=== PATIENT | male | born 1995 | race Caucasian/White ===

== ENCOUNTER 2019-02-28 23:17 | Inpatient (IN) | payer OTHER ==
[2019-03-01 00:01] LABS: ADD MAN DIFF? NO
[2019-03-01] MEDS: morphine 4 MG/ML VIAL IV ×4 (00:01→10:05)
[2019-03-01] MEDS: ONDANSETRON 4 MG INJ IV ×3 (00:01→17:33)
[2019-03-01] MEDS: SOD CHLORIDE 0.9% 1,000 ML IV ×2 (00:01→07:00)
[2019-03-01 00:02] LABS: BASOPHIL # 0.1 10^3/ul (0.0-0.1); BASOPHILS % 0.5 % (0.0-2.0); EOSINOPHILS # 0.1 10^3/ul (0.0-0.5); EOSINOPHILS % 0.8 % (0.0-7.0); HEMATOCRIT 44.2 % (42.0-52.0); HEMOGLOBIN 15.3 g/dl (14.0-18.0); LYMPHOCYTES # 4.3 10^3/ul (0.8-2.9); LYMPHOCYTES % 29.2 % (15.0-51.0); MEAN CORPUSCULAR HEMOGLOBIN 30.2 pg (29.0-33.0); MEAN CORPUSCULAR HGB CONC 34.6 g/dl (32.0-37.0); MEAN CORPUSCULAR VOLUME 87.4 fl (82.0-101.0); MEAN PLATELET VOLUME 8.8 fl (7.4-10.4); MONOCYTES % 6.9 % (0.0-11.0); NEUTROPHIL # 9.2 10^3/ul (1.6-7.5); NEUTROPHILS % 62.1 % (39.0-77.0); PLATELET COUNT 478 10^3/UL (140-415); RED BLOOD COUNT 5.06 10^6/ul (4.70-6.10); RED CELL DISTRIBUTION WIDTH 11.4 % (11.5-14.5)
[2019-03-01 00:02] LABS: WHITE BLOOD COUNT 14.8 10^3/ul (4.8-10.8)
[2019-03-01 00:05] LABS: ADD UMIC YES; UR ASCORBIC ACID NEGATIVE (NEGATIVE); UR BILIRUBIN (Dip) NEGATIVE (NEGATIVE); UR BLOOD (Dip) 1+ mg/dL (NEGATIVE); UR CLARITY CLEAR (CLEAR); UR COLOR YELLOW (YELLOW); UR GLUCOSE (Dip) NEGATIVE (NEGATIVE); UR KETONES (Dip) NEGATIVE (NEGATIVE); UR LEUKOCYTE ESTERASE (Dip) NEGATIVE Leu/ul (NEGATIVE); UR MUCUS FEW /HPF (NONE SEEN); UR NITRITE (Dip) NEGATIVE (NEGATIVE); UR RBC 2 /HPF (0-5); UR SPECIFIC GRAVITY (Dip) 1.025 (1.003-1.030); UR TOTAL PROTEIN (Dip) NEGATIVE (NEGATIVE); UR UROBILINOGEN (Dip) NEGATIVE (NEGATIVE); UR WBC 0 /HPF (0-5)
[2019-03-01 00:25] LABS: ALANINE AMINOTRANSFERASE 117 IU/L (13-69); ALBUMIN 4.6 g/dl (3.3-4.9); ALBUMIN/GLOBULIN RATIO 1.24; ALKALINE PHOSPHATASE 83 IU/L (42-121); ANION GAP 13 (5-13); ASPARTATE AMINO TRANSFERASE 57 IU/L (15-46); BILIRUBIN,INDIRECT 0.9 mg/dl (0-1.1); BILIRUBIN,TOTAL 0.9 mg/dl (0.2-1.3); BLOOD UREA NITROGEN 11 mg/dl (7-20); CALCIUM 9.9 mg/dl (8.4-10.2); CARBON DIOXIDE 27 mmol/L (21-31); CHLORIDE 104 mmol/L (97-110); CREATININE 0.96 mg/dl (0.61-1.24); Estimated GFR > 60 mL/min (>60); GLUCOSE 102 mg/dl (70-220); LIPASE 53 U/L (23-300); POTASSIUM 3.9 mmol/L (3.5-5.1); SODIUM 144 mmol/L (135-144); TOTAL PROTEIN 8.3 g/dl (6.1-8.1)
[2019-03-01] MEDS: LACTATED RINGER'S 1,000 ML IV ×2 (02:17→16:25)
[2019-03-01] MEDS: PIPER-TAZO 3.375 GM IV (PMX) 100 ML IVPB ×3 (02:17→12:05)
[2019-03-01] MEDS ORDERED: ACETAMINOPHEN 325 MG TAB PO (03:30)
[2019-03-01] MEDS ORDERED: ONDANSETRON 4 MG INJ IV (03:30)
[2019-03-01] MEDS ORDERED: morphine 2 MG INJ IV (05:30)
[2019-03-01] MEDS ORDERED: NACL 0.9% 3 ML SYG IV (05:30)
[2019-03-01] MEDS: D5W-0.45 NACL + KCL 20 MEQ 1,000 ML IV (05:44)
[2019-03-01] MEDS ORDERED: SEVOFLURANE 15 MIN (13:40)
[2019-03-01] MEDS ORDERED: PHENYLephrine (100 MCG/ML) 5ML SYG (13:40)
[2019-03-01] MEDS ORDERED: FENTAnyl 50 MCG/ML VIAL ×2 (13:40→16:14)
[2019-03-01] MEDS ORDERED: MIDAZOLAM 1 MG/ML 2 ML INJ (13:41)
[2019-03-01] MEDS ORDERED: LIDOCAINE 2% (SDV) 5 ML INJ (13:48)
[2019-03-01] MEDS ORDERED: ROCURONIUM 50 MG INJ ×4 (13:48→15:33)
[2019-03-01] MEDS ORDERED: ROPIVACAINE 0.5 % 30 ML VIAL (13:48)
[2019-03-01] MEDS ORDERED: SUCCINYLCHOLINE CHLORIDE 100 MG/5 ML SYG IV (13:48)
[2019-03-01] MEDS ORDERED: PROPOFOL 40 ML (13:48)
[2019-03-01] MEDS ORDERED: MEPERIDINE 25 MG INJ IV (14:00)
[2019-03-01] MEDS ORDERED: ONDANSETRON 4 MG INJ (14:00)
[2019-03-01] MEDS ORDERED: DIPHENHYDRAMINE 50 MG INJ IV (14:00)
[2019-03-01] MEDS ORDERED: DEXAMETHASONE 4 MG/ML 5 ML INJ (14:00)
[2019-03-01] MEDS ORDERED: PROCHLORPERAZINE 10 MG INJ IV (14:00)
[2019-03-01] MEDS ORDERED: HYDROmorphONE 1 MG/5 ML IV SYRINGE IV ×2 (14:00)
[2019-03-01] MEDS ORDERED: FAMOTIDINE 20 MG INJ (14:01)
[2019-03-01] MEDS ORDERED: HYDROmorphONE 2 MG/ML SYG (14:41)
[2019-03-01] MEDS: BUPIVACAINE 0.25%/EPI (SDV) 30 ML INJ (15:28)
[2019-03-01] MEDS ORDERED: SUGAMMADEX SODIUM 200 MG/2 ML VIAL IV (16:04)
[2019-03-01] MEDS: HYDROmorphONE 1 MG/5 ML IV SYRINGE IV (17:32)
[2019-03-01] MEDS: FENTAnyl 50 MCG/ML VIAL IV (17:32)
[2019-03-01] MEDS: KETOROLAC 30 MG INJ IV (17:33)
[2019-03-01] MEDS: AMPICILLIN/SULB 3 GM/NS (PMX) 100 ML IVPB ×2 (18:28→23:43)
[2019-03-01] MEDS: HYDROmorphONE 0.5 MG/0.5 ML SYG IV (20:47)
[2019-03-01] MEDS: HEPARIN 5,000 UNIT/1 ML VIAL SC (20:50)
[2019-03-02] MEDS: morphine 4 MG/ML VIAL IV ×4 (01:34→19:36)
[2019-03-02] MEDS: LACTATED RINGER'S 1,000 ML IV ×4 (02:31→23:02)
[2019-03-02 05:17] LABS: ADD MAN DIFF? NO
[2019-03-02 05:18] LABS: BASOPHILS % 0.1 % (0.0-2.0); HEMATOCRIT 43.2 % (42.0-52.0); HEMOGLOBIN 14.6 g/dl (14.0-18.0); LYMPHOCYTES # 2.1 10^3/ul (0.8-2.9); MEAN CORPUSCULAR HEMOGLOBIN 30.6 pg (29.0-33.0); MEAN CORPUSCULAR HGB CONC 33.8 g/dl (32.0-37.0); MEAN CORPUSCULAR VOLUME 90.6 fl (82.0-101.0); MEAN PLATELET VOLUME 8.8 fl (7.4-10.4); MONOCYTE # 1.1 10^3/ul (0.3-0.9); MONOCYTES % 7.5 % (0.0-11.0); NEUTROPHIL # 10.7 10^3/ul (1.6-7.5); NEUTROPHILS % 76.9 % (39.0-77.0); PLATELET COUNT 476 10^3/UL (140-415); RED BLOOD COUNT 4.77 10^6/ul (4.70-6.10); RED CELL DISTRIBUTION WIDTH 11.4 % (11.5-14.5)
[2019-03-02 05:18] LABS: WHITE BLOOD COUNT 13.9 10^3/ul (4.8-10.8)
[2019-03-02] MEDS: AMPICILLIN/SULB 3 GM/NS (PMX) 100 ML IVPB ×2 (05:42→13:56)
[2019-03-02 06:03] LABS: ALANINE AMINOTRANSFERASE 88 IU/L (13-69); ALBUMIN 4.1 g/dl (3.3-4.9); ALKALINE PHOSPHATASE 72 IU/L (42-121); ANION GAP 12 (5-13); ASPARTATE AMINO TRANSFERASE 56 IU/L (15-46); BILIRUBIN,INDIRECT 0.9 mg/dl (0-1.1); BILIRUBIN,TOTAL 0.9 mg/dl (0.2-1.3); BLOOD UREA NITROGEN 11 mg/dl (7-20); CALCIUM 9.3 mg/dl (8.4-10.2); CARBON DIOXIDE 28 mmol/L (21-31); CHLORIDE 104 mmol/L (97-110); CREATININE 0.82 mg/dl (0.61-1.24); Estimated GFR > 60 mL/min (>60); GLUCOSE 123 mg/dl (70-220); MAGNESIUM 2.2 mg/dl (1.7-2.5); PHOSPHORUS 4.9 mg/dl (2.5-4.9); POTASSIUM 4.4 mmol/L (3.5-5.1); SODIUM 144 mmol/L (135-144); TOTAL PROTEIN 7.5 g/dl (6.1-8.1)
[2019-03-02] MEDS: HEPARIN 5,000 UNIT/1 ML VIAL SC ×2 (08:29→21:08)
[2019-03-02] MEDS: HYDROmorphONE 0.5 MG/0.5 ML SYG IV (09:55)
[2019-03-02] MEDS: ONDANSETRON 4 MG INJ IV (13:19)
[2019-03-02] MEDS: HYDROmorphONE 1 MG/ML SYG IV ×2 (16:00→23:09)
[2019-03-02] MEDS: PIPER-TAZO 3.375 GM IV (PMX) 100 ML IVPB (19:00)
[2019-03-02] MEDS: KETOROLAC 30 MG INJ IV (21:02)
[2019-03-03] MEDS: PIPER-TAZO 3.375 GM IV (PMX) 100 ML IVPB ×5 (00:38→23:47)
[2019-03-03] MEDS: morphine 4 MG/ML VIAL IV ×5 (01:37→21:33)
[2019-03-03] MEDS: KETOROLAC 30 MG INJ IV (03:16)
[2019-03-03] MEDS: HYDROmorphONE 1 MG/ML SYG IV ×5 (05:14→23:47)
[2019-03-03 05:44] LABS: ADD MAN DIFF? NO
[2019-03-03 05:53] LABS: BASOPHIL # 0.1 10^3/ul (0.0-0.1); BASOPHILS % 0.4 % (0.0-2.0); EOSINOPHILS # 0.1 10^3/ul (0.0-0.5); EOSINOPHILS % 0.7 % (0.0-7.0); HEMATOCRIT 41.4 % (42.0-52.0); HEMOGLOBIN 13.7 g/dl (14.0-18.0); LYMPHOCYTES # 2.3 10^3/ul (0.8-2.9); LYMPHOCYTES % 16.5 % (15.0-51.0); MEAN CORPUSCULAR HEMOGLOBIN 30.3 pg (29.0-33.0); MEAN CORPUSCULAR HGB CONC 33.1 g/dl (32.0-37.0); MEAN CORPUSCULAR VOLUME 91.6 fl (82.0-101.0); MEAN PLATELET VOLUME 8.9 fl (7.4-10.4); MONOCYTE # 1.2 10^3/ul (0.3-0.9); MONOCYTES % 8.4 % (0.0-11.0); NEUTROPHIL # 10.3 10^3/ul (1.6-7.5); NEUTROPHILS % 73.4 % (39.0-77.0); PLATELET COUNT 475 10^3/UL (140-415); RED BLOOD COUNT 4.52 10^6/ul (4.70-6.10); RED CELL DISTRIBUTION WIDTH 11.5 % (11.5-14.5)
[2019-03-03 05:53] LABS: WHITE BLOOD COUNT 14.1 10^3/ul (4.8-10.8)
[2019-03-03 06:21] LABS: ALANINE AMINOTRANSFERASE 71 IU/L (13-69); ALBUMIN 3.7 g/dl (3.3-4.9); ALBUMIN/GLOBULIN RATIO 1.15; ALKALINE PHOSPHATASE 64 IU/L (42-121); ANION GAP 7 (5-13); ASPARTATE AMINO TRANSFERASE 58 IU/L (15-46); BILIRUBIN,INDIRECT 0.6 mg/dl (0-1.1); BILIRUBIN,TOTAL 0.6 mg/dl (0.2-1.3); BLOOD UREA NITROGEN 15 mg/dl (7-20); CALCIUM 9.2 mg/dl (8.4-10.2); CARBON DIOXIDE 32 mmol/L (21-31); CHLORIDE 104 mmol/L (97-110); Estimated GFR > 60 mL/min (>60); GLUCOSE 119 mg/dl (70-220); POTASSIUM 4.3 mmol/L (3.5-5.1); SODIUM 143 mmol/L (135-144); TOTAL PROTEIN 6.9 g/dl (6.1-8.1)
[2019-03-03] MEDS: HEPARIN 5,000 UNIT/1 ML VIAL SC ×2 (08:17→21:25)
[2019-03-03] MEDS: LACTATED RINGER'S 1,000 ML IV ×4 (08:25→22:47)
[2019-03-03] MEDS: LIDOCAINE 1% (MPF) 5 ML VIAL SC (11:30)
[2019-03-04] MEDS: morphine 4 MG/ML VIAL IV ×4 (02:04→20:51)
[2019-03-04] MEDS: HYDROmorphONE 1 MG/ML SYG IV ×5 (04:38→22:51)
[2019-03-04] MEDS: PIPER-TAZO 3.375 GM IV (PMX) 100 ML IVPB ×4 (05:54→23:00)
[2019-03-04] MEDS: HEPARIN 5,000 UNIT/1 ML VIAL SC ×2 (08:24→20:50)
[2019-03-04] MEDS: LACTATED RINGER'S 1,000 ML IV ×2 (11:00→22:52)
[2019-03-05] MEDS: LACTATED RINGER'S 1,000 ML IV ×3 (00:25→21:08)
[2019-03-05] MEDS: morphine 4 MG/ML VIAL IV ×2 (01:31→05:33)
[2019-03-05] MEDS: HYDROmorphONE 1 MG/ML SYG IV ×5 (02:51→22:19)
[2019-03-05] MEDS: PIPER-TAZO 3.375 GM IV (PMX) 100 ML IVPB ×4 (05:33→23:52)
[2019-03-05 05:53] LABS: ADD MAN DIFF? NO
[2019-03-05 05:59] LABS: WHITE BLOOD COUNT 11.7 10^3/ul (4.8-10.8)
[2019-03-05 05:59] LABS: BASOPHIL # 0.1 10^3/ul (0.0-0.1); BASOPHILS % 0.6 % (0.0-2.0); EOSINOPHILS # 0.3 10^3/ul (0.0-0.5); EOSINOPHILS % 2.8 % (0.0-7.0); HEMATOCRIT 41.3 % (42.0-52.0); HEMOGLOBIN 13.7 g/dl (14.0-18.0); LYMPHOCYTES # 2.9 10^3/ul (0.8-2.9); MEAN CORPUSCULAR HEMOGLOBIN 29.9 pg (29.0-33.0); MEAN CORPUSCULAR HGB CONC 33.2 g/dl (32.0-37.0); MEAN CORPUSCULAR VOLUME 90.2 fl (82.0-101.0); MEAN PLATELET VOLUME 8.9 fl (7.4-10.4); MONOCYTES % 8.4 % (0.0-11.0); NEUTROPHIL # 7.3 10^3/ul (1.6-7.5); NEUTROPHILS % 62.6 % (39.0-77.0); PLATELET COUNT 468 10^3/UL (140-415); RED BLOOD COUNT 4.58 10^6/ul (4.70-6.10); RED CELL DISTRIBUTION WIDTH 11.5 % (11.5-14.5)
[2019-03-05 06:19] LABS: ANION GAP 10 (5-13); BLOOD UREA NITROGEN 14 mg/dl (7-20); CALCIUM 8.7 mg/dl (8.4-10.2); CARBON DIOXIDE 25 mmol/L (21-31); CHLORIDE 107 mmol/L (97-110); CREATININE 0.74 mg/dl (0.61-1.24); Estimated GFR > 60 mL/min (>60); GLUCOSE 85 mg/dl (70-220); MAGNESIUM 2.1 mg/dl (1.7-2.5); POTASSIUM 3.9 mmol/L (3.5-5.1); SODIUM 142 mmol/L (135-144)
[2019-03-05] MEDS: HEPARIN 5,000 UNIT/1 ML VIAL SC ×2 (08:16→20:06)
[2019-03-05] MEDS: morphine 2 MG INJ IV (23:55)
[2019-03-06] MEDS: DIPHENHYDRAMINE 50 MG INJ IV (01:41)
[2019-03-06] MEDS: HYDROmorphONE 1 MG/ML SYG IV (03:18)
[2019-03-06] MEDS: PIPER-TAZO 3.375 GM IV (PMX) 100 ML IVPB ×4 (05:28→23:10)
[2019-03-06 05:44] LABS: ADD MAN DIFF? NO
[2019-03-06 05:49] LABS: BASOPHIL # 0.1 10^3/ul (0.0-0.1); BASOPHILS % 0.9 % (0.0-2.0); EOSINOPHILS # 0.4 10^3/ul (0.0-0.5); EOSINOPHILS % 4.4 % (0.0-7.0); HEMATOCRIT 41.1 % (42.0-52.0); HEMOGLOBIN 13.8 g/dl (14.0-18.0); LYMPHOCYTES # 2.3 10^3/ul (0.8-2.9); LYMPHOCYTES % 23.8 % (15.0-51.0); MEAN CORPUSCULAR HEMOGLOBIN 29.6 pg (29.0-33.0); MEAN CORPUSCULAR HGB CONC 33.6 g/dl (32.0-37.0); MEAN CORPUSCULAR VOLUME 88.2 fl (82.0-101.0); MEAN PLATELET VOLUME 8.8 fl (7.4-10.4); MONOCYTE # 0.9 10^3/ul (0.3-0.9); MONOCYTES % 9.4 % (0.0-11.0); NEUTROPHIL # 5.9 10^3/ul (1.6-7.5); NEUTROPHILS % 60.5 % (39.0-77.0); PLATELET COUNT 469 10^3/UL (140-415); RED BLOOD COUNT 4.66 10^6/ul (4.70-6.10); RED CELL DISTRIBUTION WIDTH 11.2 % (11.5-14.5)
[2019-03-06 05:49] LABS: WHITE BLOOD COUNT 9.8 10^3/ul (4.8-10.8)
[2019-03-06 06:10] LABS: ANION GAP 9 (5-13); BLOOD UREA NITROGEN 12 mg/dl (7-20); CALCIUM 8.7 mg/dl (8.4-10.2); CARBON DIOXIDE 26 mmol/L (21-31); CHLORIDE 105 mmol/L (97-110); CREATININE 0.82 mg/dl (0.61-1.24); Estimated GFR > 60 mL/min (>60); GLUCOSE 89 mg/dl (70-220); SODIUM 140 mmol/L (135-144)
[2019-03-06] MEDS: HEPARIN 5,000 UNIT/1 ML VIAL SC ×2 (08:05→20:20)
[2019-03-06] MEDS: LACTATED RINGER'S 1,000 ML IV ×3 (08:07→20:20)
[2019-03-06] MEDS: SOD CHLORIDE 0.9% 100 ML (09:30)
[2019-03-06] MEDS: IOHEXOL 300MG/ML 150 ML BTL (09:37)
[2019-03-06] MEDS: morphine 2 MG INJ IV (11:52)
[2019-03-07] MEDS: morphine 2 MG INJ IV (02:33)
[2019-03-07 04:56] LABS: ADD MAN DIFF? NO
[2019-03-07 05:08] LABS: WHITE BLOOD COUNT 10.1 10^3/ul (4.8-10.8)
[2019-03-07 05:08] LABS: BASOPHIL # 0.1 10^3/ul (0.0-0.1); BASOPHILS % 1.1 % (0.0-2.0); EOSINOPHILS # 0.4 10^3/ul (0.0-0.5); EOSINOPHILS % 3.6 % (0.0-7.0); HEMATOCRIT 39.6 % (42.0-52.0); HEMOGLOBIN 13.9 g/dl (14.0-18.0); LYMPHOCYTES # 2.2 10^3/ul (0.8-2.9); LYMPHOCYTES % 21.6 % (15.0-51.0); MEAN CORPUSCULAR HEMOGLOBIN 30.2 pg (29.0-33.0); MEAN CORPUSCULAR HGB CONC 35.1 g/dl (32.0-37.0); MEAN CORPUSCULAR VOLUME 86.1 fl (82.0-101.0); MEAN PLATELET VOLUME 8.8 fl (7.4-10.4); MONOCYTE # 0.9 10^3/ul (0.3-0.9); MONOCYTES % 8.8 % (0.0-11.0); NEUTROPHIL # 6.5 10^3/ul (1.6-7.5); NEUTROPHILS % 63.8 % (39.0-77.0); PLATELET COUNT 443 10^3/UL (140-415); RED CELL DISTRIBUTION WIDTH 11.2 % (11.5-14.5)
[2019-03-07 05:20] LABS: ANION GAP 10 (5-13); BLOOD UREA NITROGEN 10 mg/dl (7-20); CALCIUM 8.9 mg/dl (8.4-10.2); CARBON DIOXIDE 24 mmol/L (21-31); CHLORIDE 106 mmol/L (97-110); CREATININE 0.65 mg/dl (0.61-1.24); Estimated GFR > 60 mL/min (>60); GLUCOSE 95 mg/dl (70-220); MAGNESIUM 2.2 mg/dl (1.7-2.5); PHOSPHORUS 4.1 mg/dl (2.5-4.9); POTASSIUM 3.9 mmol/L (3.5-5.1); SODIUM 140 mmol/L (135-144)
[2019-03-07] MEDS: PIPER-TAZO 3.375 GM IV (PMX) 100 ML IVPB ×4 (06:03→23:00)
[2019-03-07] MEDS: LACTATED RINGER'S 1,000 ML IV (06:03)
[2019-03-07] MEDS: HEPARIN 5,000 UNIT/1 ML VIAL SC ×2 (08:16→20:01)
[2019-03-08] MEDS: HYDROCODONE/APAP (10/325) TAB PO (02:04)
[2019-03-08] MEDS: PIPER-TAZO 3.375 GM IV (PMX) 100 ML IVPB ×2 (05:17→12:10)
[2019-03-08 05:49] LABS: ADD MAN DIFF? NO
[2019-03-08 05:56] LABS: BASOPHIL # 0.1 10^3/ul (0.0-0.1); EOSINOPHILS # 0.4 10^3/ul (0.0-0.5); EOSINOPHILS % 4.1 % (0.0-7.0); HEMATOCRIT 40.7 % (42.0-52.0); HEMOGLOBIN 13.9 g/dl (14.0-18.0); LYMPHOCYTES # 2.7 10^3/ul (0.8-2.9); LYMPHOCYTES % 27.7 % (15.0-51.0); MEAN CORPUSCULAR HEMOGLOBIN 29.9 pg (29.0-33.0); MEAN CORPUSCULAR HGB CONC 34.2 g/dl (32.0-37.0); MEAN CORPUSCULAR VOLUME 87.5 fl (82.0-101.0); MEAN PLATELET VOLUME 9.1 fl (7.4-10.4); MONOCYTE # 0.8 10^3/ul (0.3-0.9); NEUTROPHIL # 5.6 10^3/ul (1.6-7.5); NEUTROPHILS % 57.8 % (39.0-77.0); PLATELET COUNT 477 10^3/UL (140-415); RED BLOOD COUNT 4.65 10^6/ul (4.70-6.10); RED CELL DISTRIBUTION WIDTH 11.4 % (11.5-14.5)
[2019-03-08 05:56] LABS: WHITE BLOOD COUNT 9.7 10^3/ul (4.8-10.8)
[2019-03-08 06:24] LABS: ANION GAP 8 (5-13); BLOOD UREA NITROGEN 9 mg/dl (7-20); CARBON DIOXIDE 25 mmol/L (21-31); CHLORIDE 106 mmol/L (97-110); CREATININE 0.77 mg/dl (0.61-1.24); Estimated GFR > 60 mL/min (>60); GLUCOSE 101 mg/dl (70-220); POTASSIUM 3.7 mmol/L (3.5-5.1); SODIUM 139 mmol/L (135-144)
[2019-03-08] MEDS: HEPARIN 5,000 UNIT/1 ML VIAL SC (08:50)
== END 2019-03-08 16:13 | disposition home or self-care (01) | DRG 854 ==
LOC: 5EC 03-01 03:49 → FTE 23:17 → 5EC 03-01 03:12
PROC: 0W9H00Z Drainage of Retroperitoneum with Drainage Device, Open Approach (ICD-10-PCS; principal; 2019-03-01 13:40)
PROC: 0WJG0ZZ Inspection of Peritoneal Cavity, Open Approach (ICD-10-PCS; 2019-03-01 13:40)
PROC: 0DN80ZZ Release Small Intestine, Open Approach (ICD-10-PCS; 2019-03-01 13:40)
PROC: 02H633Z Insertion of Infusion Device into Right Atrium, Percutaneous Approach (ICD-10-PCS; 2019-03-01 13:40)
DX: A41.9 Sepsis, unspecified organism (principal); K35.80 Unspecified acute appendicitis; E66.01 Morbid (severe) obesity due to excess calories; R19.09 Other intra-abdominal and pelvic swelling, mass and lump; K66.0 Peritoneal adhesions (postprocedural) (postinfection); R59.0 Localized enlarged lymph nodes; K76.0 Fatty (change of) liver, not elsewhere classified; R74.0 Nonspecific elevation of levels of transaminase and lactic acid dehydrogenase [LDH]; Z68.36 Body mass index [BMI] 36.0-36.9, adult
CPT/HCPCS: 36415; 36569; 71045; 71260; 74176; 74177; 76937; 80048; 80053; 81001; 83690; 83735; 84100; 85025; 86850; 86900; 86901; 86920; 87070; 93005; 96374; 96375; 96376; 99285-25

== ENCOUNTER 2019-04-02 21:42 | Emergency (ER) | payer OTHER ==
[2019-04-03] MEDS: ONDANSETRON 4 MG INJ IV (00:59)
[2019-04-03] MEDS: morphine 4 MG/ML VIAL IV (00:59)
[2019-04-03] MEDS: SOD CHLORIDE 0.9% 1,000 ML IV (00:59)
[2019-04-03 01:07] LABS: ADD MAN DIFF? NO
[2019-04-03 01:12] LABS: BASOPHIL # 0.1 10^3/ul (0.0-0.1); BASOPHILS % 0.6 % (0.0-2.0); EOSINOPHILS # 0.4 10^3/ul (0.0-0.5); EOSINOPHILS % 4.2 % (0.0-7.0); HEMATOCRIT 45.2 % (42.0-52.0); HEMOGLOBIN 15.3 g/dl (14.0-18.0); LYMPHOCYTES # 4.8 10^3/ul (0.8-2.9); LYMPHOCYTES % 50.2 % (15.0-51.0); MEAN CORPUSCULAR HEMOGLOBIN 29.9 pg (29.0-33.0); MEAN CORPUSCULAR HGB CONC 33.8 g/dl (32.0-37.0); MEAN CORPUSCULAR VOLUME 88.5 fl (82.0-101.0); MEAN PLATELET VOLUME 9.3 fl (7.4-10.4); MONOCYTE # 0.5 10^3/ul (0.3-0.9); NEUTROPHIL # 3.8 10^3/ul (1.6-7.5); NEUTROPHILS % 39.9 % (39.0-77.0); PLATELET COUNT 327 10^3/UL (140-415); RED BLOOD COUNT 5.11 10^6/ul (4.70-6.10); RED CELL DISTRIBUTION WIDTH 11.6 % (11.5-14.5)
[2019-04-03 01:12] LABS: WHITE BLOOD COUNT 9.6 10^3/ul (4.8-10.8)
[2019-04-03 01:26] LABS: ADD UMIC NO; UR ASCORBIC ACID NEGATIVE (NEGATIVE); UR BILIRUBIN (Dip) NEGATIVE (NEGATIVE); UR BLOOD (Dip) NEGATIVE (NEGATIVE); UR CLARITY CLEAR (CLEAR); UR COLOR YELLOW (YELLOW); UR GLUCOSE (Dip) NEGATIVE (NEGATIVE); UR KETONES (Dip) NEGATIVE (NEGATIVE); UR LEUKOCYTE ESTERASE (Dip) NEGATIVE Leu/ul (NEGATIVE); UR NITRITE (Dip) NEGATIVE (NEGATIVE); UR SPECIFIC GRAVITY (Dip) 1.023 (1.003-1.030); UR TOTAL PROTEIN (Dip) NEGATIVE (NEGATIVE); UR UROBILINOGEN (Dip) NEGATIVE (NEGATIVE)
[2019-04-03 01:28] LABS: ALANINE AMINOTRANSFERASE 70 IU/L (13-69); ALBUMIN 4.7 g/dl (3.3-4.9); ALBUMIN/GLOBULIN RATIO 1.56; ALKALINE PHOSPHATASE 72 IU/L (42-121); ANION GAP 12 (5-13); ASPARTATE AMINO TRANSFERASE 32 IU/L (15-46); BILIRUBIN,INDIRECT 0.7 mg/dl (0-1.1); BILIRUBIN,TOTAL 0.7 mg/dl (0.2-1.3); BLOOD UREA NITROGEN 13 mg/dl (7-20); CALCIUM 9.9 mg/dl (8.4-10.2); CARBON DIOXIDE 27 mmol/L (21-31); CHLORIDE 105 mmol/L (97-110); Estimated GFR > 60 mL/min (>60); GLUCOSE 91 mg/dl (70-220); LIPASE 177 U/L (23-300); SODIUM 144 mmol/L (135-144); TOTAL PROTEIN 7.7 g/dl (6.1-8.1)
[2019-04-03 01:31] LABS: INR 1.05; PROTIME 13.8 Sec (11.9-14.9); PT RATIO 1.1
[2019-04-03 01:32] LABS: PARTIAL THROMBOPLASTIN TIME 29.6 Sec (23.0-35.0)
[2019-04-03] MEDS: IOHEXOL 300MG/ML 150 ML BTL (02:43)
[2019-04-03] MEDS: SOD CHLORIDE 0.9% 100 ML (02:43)
== END 2019-04-03 02:44 | disposition home or self-care (01) ==
LOC: FTE 21:42
DX: K35.80 Unspecified acute appendicitis (principal)
CPT/HCPCS: 36415; 74177; 80053; 81003; 83690; 85025; 85610; 85730; 96374; 96375; 99285-25